=== PATIENT | male | born 1970 | race Two or more races ===

== ENCOUNTER 2025-03-13 15:53 | Emergency (ER) | payer MEDICAID ==
[~2025-03-13] VITALS: Ht 170.2 cm; Wt 97.7 kg
[2025-03-13 15:56] VITALS: BP 104/71; PULSE 106; RESP 16; O2SAT 96
== END 2025-03-13 16:15 | disposition left against medical advice (07) ==
LOC: ER 15:53
DX: R10.9 Unspecified abdominal pain (principal); Z53.21 Procedure and treatment not carried out due to patient leaving prior to being seen by health care provider